=== PATIENT | female | born 1985 | race African-American/Black ===

== ENCOUNTER 2021-05-07 09:03 | Day surgery (SDC) | payer OTHER ==
[2021-05-04 14:59] VITALS: BMI 44.8
[2021-05-07] MEDS ORDERED: PROPOFOL 20 ML ONE ×4 (10:01)
[2021-05-07 10:34] VITALS: TEMP 98
[2021-05-07 10:58] VITALS: BP 126/84; PULSE 88
== END 2021-05-07 11:10 | disposition home or self-care (01) ==
LOC: FASU-ENDO 09:03
PROVIDERS: ATTEND Internal Medicine Gastroenterology
PROC: 0DB68ZX Excision of Stomach, Via Natural or Artificial Opening Endoscopic, Diagnostic (ICD-10-PCS; 2021-05-07)
PROC: 0DB98ZX Excision of Duodenum, Via Natural or Artificial Opening Endoscopic, Diagnostic (ICD-10-PCS; principal; 2021-05-07 10:04)
DX: R10.13 Epigastric pain (principal); K29.50 Unspecified chronic gastritis without bleeding; K29.80 Duodenitis without bleeding; B96.81 Helicobacter pylori [H. pylori] as the cause of diseases classified elsewhere
CPT/HCPCS: 84703; 88305-TC; 88342-TC